=== PATIENT | male | born 1945 | race Caucasian/White ===

== ENCOUNTER 2018-01-05 08:27 | Day surgery (SDC) | payer MEDICARE, BC ==
[2017-12-29 12:52] VITALS: BMI 22.1
[2018-01-05] MEDS ORDERED: Lidocaine/Epinephrine 1% 1:100000 10 ML IJ ONE (10:04)
[2018-01-05] MEDS ORDERED: Bupivacaine 0.25% 20 ML INJ IJ ONE (10:04)
[2018-01-05] MEDS ORDERED: ceFAZolin 1 gm in NS 1 GM/100 ML BAG IVPB ONE (10:05)
--- NOTE | 2018-01-05 11:54 | PCM.SURG1 ---
Surgeon's Initial Post Op Note - Surgeon's Notes Surgeon: Dr. Jo Freight Car Repairer: Taryn cosby Type of Anesthesia: Local Anesthesia Administered By: Reynold Pre-Operative Diagnosis: forehead mass Operative Findings: forehead cystic mass [id number]. nasrin mass 2x3x0.5cm Post-Operative Diagnosis: Same Operation Performed: excision of forehead mass Specimen/Specimens Removed: forehead cystic mass, forehead nasrin bone Estimated Blood Loss: EBL {In ML}: 10 Blood Products Given: N/A Drains Used: No Drains Post-Op Condition: Good Date of Surgery/Procedure: 01/05/18 Time of Surgery/Procedure: 11:53
[2018-01-05 12:40] VITALS: BP 143/81; PULSE 92; RESP 16; TEMP 97.9; O2SAT 95
--- NOTE | 2018-01-05 21:42 | OP ---
PROCEDURE DATE: 01/05/2018 PREOPERATIVE DIAGNOSIS: Right temporal area scalp lesion, approximately 2 x 1 cm size. POSTOPERATIVE DIAGNOSIS: Right temporal area scalp lesion, approximately 2 x 1 cm size. PROCEDURES DONE: 1. Excision of the right temporal scalp lesion, possible angioma, 2 x 1 cm size. 2. Debridement and nibbling of the extra bone growth underneath the lesion. 3. Excision of the redundant skin, 2 x 1 cm size. SURGEON: Andre Jo MD ANESTHESIA: Local anesthesia plus monitoring. ESTIMATED BLOOD LOSS: Around 10 mL. DRAINS: None. PATHOLOGY: Right temporal scalp lesion, possible angioma, was sent for the pathology. COMPLICATIONS: None. INTRAOPERATIVE FINDINGS: The patient had approximately 2 x 1 cm irregular-shaped angioma of right scalp, firmly adhesed to the bone, and there was extra bone growth in periphery of the cyst that was debrided and removed. DESCRIPTION OF PROCEDURE: On intraoperative steps, this is a 72-year-old male who was diagnosed with a right scalp lesion. The patient was consented for the excision of the lesion, brought to the OR, placed supine on the operating table. After prepping and draping the scalp area, the local anesthesia was injected. First, a straight incision was made after incising the skin and subcutaneous tissue. The oval-shaped lesion was identified. The dissection was carried down deep up to the underlying bone, and the lesion was completely excised. Now, there was some bone growth in the periphery of the lesion going into the lesion, so that part of the bone was also nibbled and debrided to make the surface even and after that, hemostasis was achieved. Due to the redundant skin, the 2 x 1 cm flap was excised to make the even flaps. Then, the wound was closed in two layers, the subcu with a 2-0 Vicryl and skin with a 4-0 Monocryl. Dry sterile dressing was applied. The patient tolerated the procedure well. Count of instruments and gauze was correct. There was no apparent complication. The patient was extubated in OR and sent to the postanesthesia care unit in stable condition. Andre Jo MD [facility] # [id number] MTDD
== END 2018-01-05 13:00 | disposition home or self-care (01) ==
LOC: C.SDS 08:27
PROVIDERS: ATTEND Surgery Surgical Critical Care
DX: D21.0 Benign neoplasm of connective and other soft tissue of head, face and neck (principal); D16.4 Benign neoplasm of bones of skull and face; L98.8 Other specified disorders of the skin and subcutaneous tissue
CPT/HCPCS: 11044; 11423; 21014; 88305; J0690

== ENCOUNTER 2018-03-23 14:31 | Outpatient (CLI) | payer MEDICARE, BC | END 2018-03-23 14:32 | disposition home or self-care (01) | LOC: C.RADH 14:31 | DX: J40 Bronchitis, not specified as acute or chronic (principal) ==

== ENCOUNTER 2018-05-02 15:09 | Outpatient (CLI) | payer MEDICARE, BC | END 2018-05-02 15:10 | disposition home or self-care (01) | LOC: C.RADIC 15:09 | DX: R06.00 Dyspnea, unspecified (principal) ==